=== PATIENT | female | born 1965 | race Asian ===

== ENCOUNTER 2017-01-10 19:01 | Emergency (ER) | payer BC, OTHER ==
[~2017-01-10] VITALS: Ht 157.5 cm; Wt 58.1 kg
[2017-01-10 19:06] VITALS: BP_SYST 149
--- NOTE | 2017-01-10 19:10 | NUR ---
Placed in room 06 . Placed on radiation monitor, blood pressure machine and pulse oximeter. To gown for exam. Side rails up. Report given to AMANDA Ochoa.
--- NOTE | 2017-01-10 19:16 | NUR ---
PT STATES SHE GOT A SPIDER BITE WHILE SHOPPING ON HER RT EYE, HAS BLURRY VISION AND C/O REEVES 6/10. SOME SWELLING NOTED AND REDNESS TO RT EYE. SAFETY PRECAUTIONS IN PLACE, WILL CONTINUE TO MONITOR.
--- NOTE | 2017-01-10 19:30 | NUR ---
PRATEEK JOSEPH NP at bedside examining patient.
--- NOTE | 2017-01-10 19:35 | NUR ---
VISUAL ACUITY DONE, LT EYE 20/25, RT EYE 20/200, BOTH 20/25.
[2017-01-10] MEDS ORDERED: IBUPROFEN 800 MG TABLET PO ONE (20:00)
[2017-01-10] MEDS ORDERED: CLINDAMYCIN 600 mg/50mL D5W 50 ML IV ONE (20:15)
[2017-01-10] MEDS ORDERED: POLYMYXIN B/TRIMETHOPRIM EYE DROPS 10 mL OP ONE (20:15)
[2017-01-10 20:50] VITALS: BP_SYST 145
--- NOTE | 2017-01-10 20:50 | NUR ---
Patient given written and verbal discharge instructions and verbalizes understanding. ER [facility] discussed with patient the results and treatment provided. Given copies of tests performed in ER. Patient in stable condition. ID arm band removed. Rx of MOTRIN, POLYTRIM, DOXYCYCLINE, AND LORATADINE given. Patient educated on pain management and to follow up with PMD. Pain Scale OF REEVES IS 1/10, PT STATES SHE FEELS MUCH BETTER, AMBULATES W/ STEADY GAIT. Opportunity for questions provided and answered.
== END 2017-01-10 20:50 | disposition home or self-care (01) ==
LOC: SED 19:01
DX: L03.213 Periorbital cellulitis (principal); F17.210 Nicotine dependence, cigarettes, uncomplicated; Z88.0 Allergy status to penicillin
CPT/HCPCS: 96365; 99284; J3490

== ENCOUNTER 2017-10-27 20:30 | Emergency (ER) | payer BC, MEDICAID ==
[~2017-10-27] VITALS: Ht 157.5 cm; Wt 58.1 kg
[2017-10-27 20:30] VITALS: BP_SYST 114
[2017-10-27] MEDS ORDERED: IBUPROFEN 600 MG TABLET PO ONE (21:15)
[2017-10-27] MEDS ORDERED: ONDANSETRON HCL 4 MG/2 ML VIAL IVP ONE (21:15)
[2017-10-27 21:22] LABS: BILIRUBIN,URINE NEGATIVE (NEGATIVE); BLOOD, URINE 1+ (NEGATIVE); CLARITY/URINE CLEAR (CLEAR); COLOR,URINE YELLOW (YELLOW); GLUCOSE,URINE NEGATIVE (NEGATIVE); KETONES,URINE NEGATIVE (NEGATIVE); LEUKOCYTE ESTERASE ,URINE 1+ (NEGATIVE); NITRITE, URINE NEGATIVE (NEGATIVE); PH,URINE 5.5 (5.0-8.0); PROTEIN URINE NEGATIVE (NEGATIVE); UROBILINOGEN,URINE 0.2 (0.2-1.0)
[2017-10-27 21:27] LABS: BASOPHILS # (AUTO) 0.1 K/uL (0.0-0.2); BASOPHILS % (AUTO) 0.9 % (0.0-2.0); EOSINOPHILS # (AUTO) 0.4 K/uL (0.0-0.4); EOSINOPHILS % (AUTO) 4.7 % (0.0-4.0); HEMATOCRIT 40.8 % (36-48); HEMOGLOBIN 13.4 g/dL (12.0-16.0); LYMPHOCYTES # (AUTO) 1.9 K/uL (1.0-5.5); LYMPHOCYTES % (AUTO) 24.5 % (20.5-51.5); MEAN CORPUSCULAR HEMOGLOBIN 30 pg (27-31); MEAN CORPUSCULAR HGB CONC 33 % (32-36); MEAN CORPUSCULAR VOLUME 92 fL (79.0-98.0); MONOCYTES # (AUTO) 0.9 K/uL (0.0-1.0); NEUTROPHILS # (AUTO) 4.5 K/uL (1.8-7.7); NEUTROPHILS % (AUTO) 58.9 % (40.0-70.0); PLATELET COUNT (AUTO) 383 K/uL (130-430); RED BLOOD CELL COUNT(AUTO) 4.44 MIL/uL (4.2-6.2); WHITE BLOOD COUNT (AUTO) 7.8 K/uL (4.8-10.8)
[2017-10-27 21:29] LABS: BACTERIA,URINE MODERATE /HPF (None Seen); MUCUS,URINE 1+ /LPF (None Seen)
[2017-10-27 21:38] LABS: PROTHROMBIN TIME 9.9 SECS (9.5-12.5)
[2017-10-27 22:30] VITALS: BP_SYST 127
== END 2017-10-27 22:30 | disposition home or self-care (01) ==
LOC: SED 20:30
DX: J10.1 Influenza due to other identified influenza virus with other respiratory manifestations (principal); F17.200 Nicotine dependence, unspecified, uncomplicated; Z88.0 Allergy status to penicillin; Z85.850 Personal history of malignant neoplasm of thyroid
CPT/HCPCS: 36415; 71045; 81000; 81025; 83880; 84484; 85025; 85610; 85730; 86710; 87086; 93005; 96374; 99285; J2405